=== PATIENT | male | born 1990 | race Caucasian/White ===

== ENCOUNTER 2024-06-26 13:58 | Emergency (ER) | payer OTHER, SELFPAY ==
[2024-06-26 14:10] VITALS: BP 123/90; PULSE 96; RESP 18; TEMP 36.9; O2SAT 98
--- NOTE | 2024-06-26 14:31 | ED.GENADULT ---
HPI - General Adult General Chief complaint: Urogenital-Male Stated complaint: poss std exposure Time Seen by Provider: 06/26/24 14:18 Source: patient, RN notes reviewed and old records reviewed Mode of arrival: ambulatory Limitations: no limitations History of Present Illness HPI narrative: 34-year-old male to [facility] reporting exposure to Trichomonas , requesting treatment. Patient states that his girlfriend received a call from our office today stating that she tested positive. patient reports urinary frequency for 1 week. Patient denies penile discharge, testicular pain, Abdominal pain. Related Data Home Medications Medication Instructions Recorded Confirmed aripiprazole 400 mg suspension, 400 mg IM MONTHLY 06/26/24 06/26/24 extended rel.intramuscular syringe (Cynthialianastasia Torresjosea) Allergies Allergy/AdvReac Type Severity Reaction Status Date / Time Penicillins Allergy Rash Verified 06/26/24 14:22 Review of Systems Review of Systems: All systems reviewed & are unremarkable except as noted in HPI and below Constitutional: Constitutional: Reports no additional constitutional complaints Eyes: Eyes: Reports no additional eye complaints ENT: Reports system reviewed and no additional complaints, except as documented Cardiovascular: Cardiovascular: Reports no additional cardiovascular complaints, Denies chest pain and Denies dyspnea Respiratory: Respiratory: Reports no additional respiratory complaints, Denies cough and Denies dyspnea Musculoskeletal: Musculoskeletal: Reports no additional musculoskeletal complaints Neurologic: Reports system reviewed and no additional complaints, except as documented Psychiatric: Psychiatric: Reports no additional psychiatric complaints PMFSH Comments At the time of my signature, I reviewed and agree with the nursing past medical, surgical, social, and family history. There is no relevant family history pertinent to the patient complaint. Exam Const: General: cooperative, healthy appearing, comfortable, no acute distress, alert and well nourished Nutritional Appearance: well nourished Orientation/consciousness: patient oriented x3 Limitations: no limitations HENMT: Head: normal to inspection Ears: external ears normal Face/Nose/Sinus: Normal external nose present, Normal nares present, normal facial exam, No erythema and No edema Face and sinus: normal facial exam, no erythema and no edema Mouth: Yes Normal oral and palatal mucosa present Eyes: General: appearance normal, both eyes and all related structures Neck: Neck: normal visual inspection, full ROM and no meningeal signs Lymphatic: no lymphadenopathy noted and no lymphedema noted Chest: Chest palpation & inspection: normal inspection of the chest Resp: Effort & Inspection: normal respiratory effort and able to speak in complete sentences Auscultation: clear to auscultation bilaterally Cardio: Jugular venous distension: no JVD Rate: regular rate Rhythm: regular rhythm Back/Spine/Pelvis: Cervical Spine: cervical ROM normal Skin: General skin exam: normal color, no rashes or lesions noted and turgor normal Neuro: General: patient oriented x3, gait normal, moves all extremities and no meningeal signs Speech: normal speech Gait exam (Neuro): Normal gait present Extrem: General: normal to inspection, full ROM and capillary refill normal Psych: Appearance: grossly normal and well kempt Course Course Emergency Course: Some parts of this dictation were generated by voice recognition software and may contain typographical and/or grammatical inaccuracies. Level of Care: Express Care Visit Vital Signs Vital signs: Vital Signs Temperature 36.9 C 06/26/24 14:10 Pulse Rate 96 06/26/24 14:10 Respiratory Rate 18 06/26/24 14:10 Blood Pressure 123/90 06/26/24 14:10 Pulse Oximetry 98 06/26/24 14:10 Oxygen Delivery Room Air 06/26/24 14:10 Temperature 36.9 C 06/26/24 14
== END 2024-06-26 14:41 | disposition home or self-care (01) ==
PROVIDERS: Emergency Provider Nurse Practitioner Family; PCP Internal Medicine
DX: Z11.3 Encounter for screening for infections with a predominantly sexual mode of transmission (principal); F31.9 Bipolar disorder, unspecified
CPT/HCPCS: 99213; G0463